=== PATIENT | male | born 1950 | race Caucasian/White ===

== ENCOUNTER → 2017-06-06 | Outpatient (CLI) | payer OTHER ==
--- NOTE | 2017-06-06 11:20 | DIAGNOSTIC IMAGING REPORT ---
AP STANDING VIEW OF BOTH KNEES; 3 VIEWS LEFT KNEE CLINICAL HISTORY: Chronic left knee pain. FINDINGS: An AP standing view of both knees with lateral, tunnel, and sunrise views of the left knee are compared to study dated 03/05/2014. The skeletal structures are osteopenic. No fracture is seen. There is moderate tricompartmental degenerative joint space narrowing, greatest in the medial and patellofemoral compartments. There are small marginal osteophytes and patellar enthesophytes. There is no evidence of osteochondral defect on the tunnel view. Degenerative beaking is noted in the tibial spine. A calcified fabella is incidentally noted. A small joint effusion is observed. Mild overlying soft tissue edema is suggested. Survey images of the right knee show no acute abnormality. Moderate narrowing is seen in the medial compartment the right knee. IMPRESSION: 1. Soft tissue swelling and joint effusion are suggested in the left knee. No acute bony abdomen mild is identified. 2. Osteopenia and degenerative change as above. Electronically signed by: Jameel Partida M.D. 06/06/2017 11:19 AM Dictated Date/Time: 06/06/2017 11:16 AM
== END | disposition home or self-care (01) ==
LOC: C.RDSM 11:05
PROVIDERS: ATTEND Internal Medicine
DX: M25.562 Pain in left knee (principal); M25.462 Effusion, left knee

== ENCOUNTER 2024-08-27 08:50 | Observation (INO) ==
--- NOTE | 2024-07-31 12:10 | PAT Medication Instructions ---
Medication Instructions Date of Service July 31, 2024 Home Medications Medication Instructions Recorded azelastine 137 mcg (0.1 %) nasal 1 spray intranasal BID PRN 02/26/24 spray rhinitis #30 mL ipratropium bromide 42 mcg (0.06 2 spray intranasal TID #15 mL 03/21/24 %) nasal spray apixaban 5 mg tablet (Eliquis) 5 mg PO Q12H #180 tabs 03/29/24 celecoxib 100 mg capsule (Celebrex) 200 mg (2 x 100 mg) PO BID PRN 04/15/24 pain #90 caps L-Arginate 1 cap PO QAM multivitamin 1 tab PO QAM vitamin B complex 1 tab PO QAM wheat germ oil 45 mg PO QAM ascorbic acid (vitamin C) 1,000 mg tablet 1 g PO QAM medical marijuana 1 dose PO UD azelastine 137 mcg (0.1 %) nasal spray 1 spray intranasal BID PRN ipratropium bromide 42 mcg (0.06 %) nasal spray 2 spray intranasal TID apixaban 5 mg tablet (Eliquis) 5 mg PO Q12H celecoxib 100 mg capsule (Celebrex) 200 mg (2 x 100 mg) PO BID PRN betamethasone dipropionate 0.05 % topical cream 1 applic topical BID PRN cholecalciferol (vitamin D3) 50 mcg (2,000 unit) capsule 50 mcg PO QAM clindamycin phosphate 1 % topical gel 1 applic topical DAILY PRN famotidine 40 mg tablet 40 mg PO QAM hydrocodone-homatropine 5 mg-1.5 mg/5 mL oral syrup 5 ml PO Q6H PRN losartan 50 mg tablet 50 mg PO QAM magnesium oxide 200 mg PO QAM mupirocin 2 % topical ointment 1 applic topical BID PRN ASK your surgeon for instructions L-Arginate 1 cap PO QAM celecoxib 100 mg capsule (Celebrex) 200 mg (2 x 100 mg) PO BID PRN ASK your prescriber and surgeon apixaban 5 mg tablet (Eliquis) 5 mg PO Q12H(in order for spinal or epidural anesthesia, Eliquis needs to be stopped 72 hours/3 days before surgery. Please check if okay with doctor that prescribes this to you) STOP taking 24 hours before surgery medical marijuana 1 dose PO UD betamethasone dipropionate 0.05 % topical cream 1 applic topical BID PRN clindamycin phosphate 1 % topical gel 1 applic topical DAILY PRN mupirocin 2 % topical ointment 1 applic topical BID PRN DO NOT take the morning of surgery multivitamin 1 tab PO QAM vitamin B complex 1 tab PO QAM wheat germ oil 45 mg PO QAM ascorbic acid (vitamin C) 1,000 mg tablet 1 g PO QAM cholecalciferol (vitamin D3) 50 mcg (2,000 unit) capsule 50 mcg PO QAM hydrocodone-homatropine 5 mg-1.5 mg/5 mL oral syrup 5 ml PO Q6H PRN losartan 50 mg tablet 50 mg PO QAM magnesium oxide 200 mg PO QAM Take morning of surgery With a small sip of water, OTHERWISE NOTHING TO EAT OR DRINK AFTER MIDNIGHT: azelastine 137 mcg (0.1 %) nasal spray 1 spray intranasal BID PRN(if needed) ipratropium bromide 42 mcg (0.06 %) nasal spray 2 spray intranasal TID famotidine 40 mg tablet 40 mg PO QAM Take evening before surgery azelastine 137 mcg (0.1 %) nasal spray 1 spray intranasal BID PRN(if needed) ipratropium bromide 42 mcg (0.06 %) nasal spray 2 spray intranasal TID hydrocodone-homatropine 5 mg-1.5 mg/5 mL oral syrup 5 ml PO Q6H PRN(if needed) Other Notes If you have any questions please call us at [phone] or [phone] or [phone] or [phone]
--- NOTE | 2024-08-06 10:57 | Anesthesiology Consultation ---
Date of Service August 06, 2024 Assessment & Plan (1) Encounter for pre-operative examination: Chart Review Chart Review: Acceptable Risk for Surgery (pending cardio clearance 08/16/24) and Patient seen in Pre Admission Testing - Discussed cardiac history (including moderate AV sclerosis in 2019) and preop EKG with Dr. Cortes- recommends cardiac clearance with ideally an updated ECHO (to rule out AV stenosis) - scheduled to see [facility] 08/16/24 at 915am. Patient aware. - Patient is not an ideal OPJ candidate (currently 23 hour observation) Per PAT appt on 08/06/24, no recent illness/disease exposures, illness related symptoms, or recent illness/disease positive tests. Will leave to surgeon's discretion if preop Covid testing needed Patient seen by cardio 05/21/24= patient seen for follow up. Had done well since last visit. "The patient is stable from a cardiovascular standpoint. He dem onstrates excellent control of his blood pressure at home. His cholesterol values are well-controlled. He was commended on his active lifestyle and exercise program. He is tolerating long-term anticoagulation for his paroxysmal atrial flutter without difficulty. Highly complex medical issues were managed and discussed today." Continue current meds. Follow up in six months Teaching & Discussion Pre-Anesthesia Teaching/Discussion Notes: Instructed NPO after midnight before surgery,except medications with 15 cc of water. Medication instructions provided according to the PAT guidelines. History Surgery Operation Date: 08/27/24 10:40 Proposed Procedures p Right Total Knee Arthroplasty - Az Seaman MD Height/Weight Height: 6 ft 1 in Weight: 93.6 kg Allergies Allergy/AdvReac Type Severity Reaction Status Date / Time No Known Drug Allergies Allergy NKDA Verified 07/29/24 10:49 Medications Home Medications Medication Instructions Recorded Confirmed Last Taken L-Arginate 1 cap PO QAM 03/11/21 07/29/24 03/28/23 multivitamin 1 tab PO QAM 03/11/21 07/29/24 03/28/23 vitamin B complex 1 tab PO QAM 03/11/21 07/29/24 03/28/23 wheat germ oil 45 mg PO QAM 04/25/22 07/29/24 03/28/23 ascorbic acid (vitamin C) 1,000 mg 1 g PO QAM 11/07/22 07/29/2423 tablet medical marijuana 1 dose PO UD 06/15/23 07/29/24 Unknown azelastine 137 mcg (0.1 %) nasal 1 spray intranasal BID PRN 02/26/24 07/29/24 Unknown spray rhinitis #30 mL ipratropium bromide 42 mcg (0.06 2 spray intranasal TID #15 mL 03/21/24 07/29/24 Unknown %) nasal spray apixaban 5 mg tablet (Eliquis) 5 mg PO Q12H #180 tabs 03/29/24 07/29/24 Unknown celecoxib 100 mg capsule (Celebrex) 200 mg (2 x 100 mg) PO BID PRN 04/15/24 07/29/24 Unknown pain #90 caps betamethasone dipropionate 0.05 % 1 applic topical BID PRN Insect 07/29/24 07/29/24 Unknown topical cream Bite cholecalciferol (vitamin D3) 50 50 mcg PO QAM 07/29/24 07/29/24 Unknown mcg (2,000 unit) capsule clindamycin phosphate 1 % topical 1 applic topical DAILY PRN Skin 07/29/24 07/29/24 Unknown gel Irritation famotidine 40 mg tablet 40 mg PO QAM 07/29/24 07/29/24 Unknown losartan 50 mg tablet 50 mg PO QAM 07/29/24 07/29/24 Unknown magnesium oxide 200 mg PO QAM 07/29/24 07/29/24 Unknown mupirocin 2 % topical ointment 1 applic topical BID PRN Skin 07/29/24 07/29/24 Unknown Irritation diclofenac sodium 1 % topical gel 2 g topical QID #100 grams 08/09/24 Unknown (Aleve (diclofenac)) hydrocodone-homatropine 5 mg-1.5 5 ml PO Q6H PRN Cough #473 mL 08/09/24 Unknown mg/5 mL oral syrup Past Medical History Medical History (Updated 08/06/24 @ 11:14 by Maria Luz Michelle PA-C) Abnormal gait "due to stiffness in knees" Aortic valvular disorder Moderate AV sclerosis without significant AV stenosis per 2019 ECHO Arthritis includes shoulder and knees Atrial flutter currently on eliquis; f/[place] Back stiffness Chronic venous insufficiency resolved with VenaSeal bilaterally Cough occasionally w/gerd Degenerative arthritis of lumbar spine Degenerative spondylolisthesis Environmental allergies Eustachian tube dysfunction occasionally GERD (gastroesophageal reflux disease) well controlled and stable with medication Gilbert's syndrome Hiatal hernia History of COVID-19 summer 2023, resolved Hypertension IBS (irritable bowel syndrome) Post-nasal drip due to environmental allergies Sinusitis chronic Tricuspid insufficiency Mild TR per 2019 ECHO Exercise / Class Metabolic Activity II 4-5 Yardwork/Stairs/Walk up hill (one flight of stairs - no chest pain or SOB ) Past Family History Family History Sister No problems noted. Mother Hearing loss Bipolar disorder Hypertension Stroke Brother Lung cancer Other No family history of adverse response to anesthesia No family history of bleeding disorder Denies family history of Ovarian cancer Prostate cancer Myocardial infarction Breast cancer Colorectal cancer Past Surgical History Surgical History H/O detached retina repair left History of left cataract extraction History of rhinoplasty 1979 History of right cataract surgery History of tooth extraction Hx of left inguinal hernia repair Hx of removal of cyst [place] teeth removed Past Anesthesia History No Hx of Anesthesia Complications and No Family Hx of Anesthesia Complications History of PONV No Hx of PONV and No Hx of Motion Sickness Social History Smoking Status: Never smoker tobacco type: cigarettes Smoking cigarettes per day: only smoked when he was in college Do You Dip or Chew Tobacco: No Hx Alcohol Use: Yes Alcohol type: beer, wine and hard liquor alcohol intake frequency: a few times a week Hx Substance Use: Yes (medical card) substance use type: marijuana Last Used Substance Other:: usually every evening Review of Systems - Hx of snoring- hx of sleep study in - no ANGELO Patient denies chest pain, shortness of breath, dyspnea on exertion, cough, wheezing, palpitations. No hx of seizures, stroke, SD. No hx of blood clots or blood transfusions Physical Exam Vital Signs VITALS BP 146/80 P 54 TEMP 97.6 SP02 96% RESP 16 Constitutional no acute distress ENMT Mouth: no TMJ clicking Thyromental Distance: > or= 3.5 Finger Breadths (3.5) Mallampati Class: II Front bottom teeth permanent implants Caps and crowns to side teeth and molars Neck neck extension not limited Respiratory normal respiratory effort; no respiratory distress Auscultation: lungs clear to auscultation bilaterally; no wheezes Cardiovascular Rate/Rhythm: regular rate and regular rhythm Heart Sounds: no murmur Vessels: no carotid bruit Irregularly irregular rhythm (rate controlled) Distant heart sounds. No obvious murmur Musculoskeletal Spine: no pain with cervical ROM Extremities: extremities normal to inspection Psychiatric Orientation: alert Lab Results Anesthesia Preop Results Results Anesthesia Widget: WBC 4.16 K/ul (4.8-10.8) L 08/06/24 Hgb 14.7 g/dl (14.0-18.0) 08/06/24 Hct 41.6 % (42.0-52.0) L 08/06/24 Plt 242 K/uL (130-400) 08/06/24 Na 136 mmol/L (136-145) 08/06/24 K 4.3 mmol/L (3.5-5.1) 08/06/24 Cl 103 mmol/L (98-107) 08/06/24 CO2 27 mmol/L (21-32) 08/06/24 BUN 16 mg/dl (6-23) 08/06/24 Creat 0.75 mg/dl (0.6-1.4) 08/06/24 Glucose Level 105 mg/dl (70-99(Fasting)) H 08/06/24 PT 12.2 Seconds (9.0-12.0) H 08/06/24 PTT 29 Seconds (21-31) 08/06/24 INR 1.1 (0.9-1.1) 08/06/24 Blood Type A Positive 08/06/24 Antibody Screen NEGATIVE 08/06/24 Testing Laboratory Results 08/06/24= TOTAL BILI: 1.8 (chronic and stable- hx of [place] syndrome) DIRECT BILI: 0.3 AST: 33 ALT: 28 ALK PHOS: 65 Electrocardiogram Date: 08/06/24 Atrial fibrillation with slow ventricular response at 44bpm Anteroseptal infarct When compared to EKG from March 17, 2023- atrial fibrillation has replaced a flutt er, questionable change in initial forces of septal leads per cardio Chest X-Ray Date: 08/06/24 FINDINGS: Lung volumes are normal. Lungs are clear. There is no pneumothorax or pleural effusion. Moderate cardiomegaly is unchanged. Mediastinal contours are normal. There is no evidence for pulmonary edema. Severe osteoarthritis of the bilateral glenohumeral joints incidentally noted. IMPRESSION: No acute cardiopulmonary findings. Stable cardiomegaly. Echocardiogram Date: 07/30/19 EF: 55-60% LV Function: normal RWMA: + none Other Findings: no LVH AV sclerosis moderate, without significant AV stenosis Mild TR
--- NOTE | 2024-08-19 18:36 | History & Physical Report ---
Date of Service August 19, 2024 Assessment & Plan (1) Bilateral primary osteoarthritis of knee: 73-year-old male with multiple medical comorbidities including atrial flutter and send aortic valve sclerosis with advanced bilateral knee DJD right side more symptomatic than the left. He would like to proceed with right knee replacement. Plan: Corinaran taken to the operating room and do a right total knee replacement. The risks and benefits of this procedure were explained and he understands. He knows he has to hold the Eliquis 3 days preop. He is seeing the production lapping machine operator and he has been cleared for surgery pending an echo. He apparently has some aortic sclerosis and they are just checking to make sure it is not progressed. His lungs looks okay we will proceed. Will use Eliquis for DVT prophylaxis. Plan stay in the hospital overnight and discharged hopefully postop day 1. (2) Osteoarthritis of shoulders, bilateral: (3) Disc degeneration, lumbosacral: (4) Atrial flutter: (5) GERD (gastroesophageal reflux disease): (6) Hypertension: History of Present Illness Chief Complaint: . Persistent progressive bilateral knee pain and discomfort right side greater than the left. Primary Care Provider: Geovany Jimenez MD . Patient is a 73-year-old gentleman who now presents specifically for surgical treatment of his knees. He is got about a 6-year history of increasing bilateral knee pain discomfort right side cord bit worse than the left. He has been through conservative treatment which would become less successful. He really cannot take NSAIDs as he is on Eliquis for atrial flutter followed by Dr. Vicente. The pain has begun to a really limit his walking ability. He can walk about 30 minutes next about it. He is ready to look and do fixing his knees. Allergies Allergy/AdvReac Type Severity Reaction Status Date / Time No Known Drug Allergies Allergy NKDA Verified 08/16/24 09:33 Home Medications Medication Instructions Recorded Confirmed Type L-Arginate 1 cap PO QAM 03/11/21 08/16/24 History multivitamin 1 tab PO QAM 03/11/21 08/16/24 History vitamin B complex 1 tab PO QAM 03/11/21 08/16/24 History wheat germ oil 45 mg PO QAM 04/25/22 08/16/24 History ascorbic acid (vitamin C) 1,000 mg 1 g PO QAM 11/07/22 08/16/24 History tablet medical marijuana 1 dose PO UD 06/15/23 08/16/24 History azelastine 137 mcg (0.1 %) nasal 1 spray intranasal BID PRN 02/26/24 08/16/24 Rx spray rhinitis #30 mL ipratropium bromide 42 mcg (0.06 2 spray intranasal TID #15 mL 03/21/24 08/16/24 Rx %) nasal spray apixaban 5 mg tablet (Eliquis) 5 mg PO Q12H #180 tabs 03/29/24 08/16/24 Rx celecoxib 100 mg capsule (Celebrex) 200 mg (2 x 100 mg) PO BID PRN 04/15/24 08/16/24 Rx pain #90 caps betamethasone dipropionate 0.05 % 1 applic topical BID PRN Insect 07/29/24 08/16/24 History topical cream Bite cholecalciferol (vitamin D3) 50 50 mcg PO QAM 07/29/24 08/16/24 History mcg (2,000 unit) capsule clindamycin phosphate 1 % topical 1 applic topical DAILY PRN Skin 07/29/24 08/16/24 History gel Irritation famotidine 40 mg tablet 40 mg PO QAM 07/29/24 08/16/24 History losartan 50 mg tablet 50 mg PO QAM 07/29/24 08/16/24 History magnesium oxide 200 mg PO QAM 07/29/24 08/16/24 History mupirocin 2 % topical ointment 1 applic topical BID PRN Skin 07/29/24 08/16/24 History Irritation diclofenac sodium 1 % topical gel 2 g topical QID #100 grams 08/09/24 08/16/24 Rx (Aleve (diclofenac)) hydrocodone-homatropine 5 mg-1.5 5 ml PO Q6H PRN Cough #473 mL 08/09/24 08/16/24 Rx mg/5 mL oral syrup Past Med/Surg History Problem List (Updated 08/19/24 @ 18:34 by Az Seaman MD) Bilateral primary osteoarthritis of knee Osteoarthritis of shoulders, bilateral Disc degeneration, lumbosacral Lumbar and sacral spondylarthritis Meniscal injury Foot ulcer Bilateral rotator cuff dysfunction Dermatitis Abnormal gait Sacroiliac joint disease Decreased range of motion of hip Arthritis Trigger finger S/P left inguinal hernia repair (04/05/23) Left Robotic Inguinal Hernia Repair - Freddy Mendez, DO, FACS Hypomagnesemia Encounter for pre-operative examination Atrial flutter dx in [facility] ER 03/17/23, f/u Dr. 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 Medical History History of COVID-19 summer 2023, resolved Tricuspid insufficiency Mild TR per 2019 ECHO IBS (irritable bowel syndrome) Degenerative spondylolisthesis Degenerative arthritis of lumbar spine Chronic venous insufficiency resolved with VenaSeal bilaterally Back stiffness Arthritis includes shoulder and knees Atrial flutter currently on eliquis; f/u [place] vicente Aortic valvular disorder Moderate AV sclerosis without significant AV stenosis per 2019 ECHO Abnormal gait "due to stiffness in knees" Sinusitis chronic Post-nasal drip due to environmental allergies Gilbert's syndrome Eustachian tube dysfunction occasionally Cough occasionally w/gerd Hiatal hernia Hypertension GERD (gastroesophageal reflux disease) well controlled and stable with medication Environmental allergies Surgical History Hx of left inguinal hernia repair Hx of removal of cyst History of left cataract extraction History of right cataract surgery History of tooth extraction [place] teeth removed H/O detached retina repair left History of rhinoplasty 1978 Family History Sister No problems noted. Mother Hearing loss Bipolar disorder Hypertension Stroke Brother Lung cancer Other No family history of adverse response to anesthesia No family history of bleeding disorder Denies family history of Ovarian cancer Prostate cancer Myocardial infarction Breast cancer Colorectal cancer Social History Smoking Status: Never smoker Tobacco Type: Cigarettes Age Started Using Tobacco: 17; Age Quit Using Tobacco: 20; packs per day: 0.75; Cigarettes Per Day: only smoked when he was in college; Second Hand Exposure: No; Do You Dip or Chew Tobacco: No; Hx Alcohol Use: Yes Alcohol type: beer, wine and hard liquor Alcohol Intake Frequency Comment: 1-2 drinks occasionally Hx Substance Use: Yes (medical card) Prescribed Medications: Marijuana Last Used Substance Other:: usually every evening Preferred Language: Ecuadorean Communication Ability: Effective Visual Impairment: No Limitations Hearing Ability: Normal Fast Food Shift Supervisor Required: No Beliefs That Will Affect Care: None marital status: Current Living Situation: Spouse current occupational status: retired current occupation: used to work in sales and [employer] How many Children do You have: 2 Feels Safe at Home: Yes Childhood Exposure to Second-Hand Smoke: No Diet: regular during the past year weight has: decreased > 10 lbs Dental Care, Regularly: Yes Physical Activity Frequency: Daily Seatbelt Use: always Sunscreen Use: No Assistive Devices: Glasses Review of Systems All systems reviewed & are unremarkable except as noted in HPI & below. Physical Exam . Physical examination reveals a pleasant healthy-appearing middle-aged gentleman. Looks to be in pretty good health. Examination of the knees reveal patient ambulates independently. Examination of the right knee reveals slight valgus alignment to his knee. He is tender over the lateral joint line. Small knee effusion. Range of motion is 5 to about 10 5-1 10. Bit stiff with flexion. No pain with hip motion. Examination left knee reveals a fairly similar valgus alignment. A little te nder over the lateral side of the knee. Small knee effusion. Range of motion is 5-1 10. No pain with hip motion. Constitutional WD/WN, vitals as above Respiratory normal respiratory effort, lungs clear to auscultation Cardiovascular Rate/Rhythm: + irregularly irregular Gastrointestinal (Abdomen) normal bowel sounds, soft, nontender, no hepatosplenomegaly Results & Data Results & Data Laboratory Results . Diagnostic Findings . X-rays of both knees were reviewed. That shows fairly advanced lateral compartment DJD of the right knee is probably a little bit worse than the left but both are fairly advanced. Got valgus alignment to both knees. PG Care Time/CCT Total # of Minutes Spent Total Time Spent with Patient: Total time spent is greater than 50% in coordination of care (as documented) at patient's floor/unit and/or counseling patient: Coding Level of Care Code None Diagnoses Bilateral primary osteoarthritis of knee M17.0 Osteoarthritis of shoulders, bilateral M19.011; M19.012 Disc degeneration, lumbosacral M51.37 Atrial flutter I48.92 GERD (gastroesophageal reflux disease) K21.9 Hypertension I10
[~2024-08-27 08:50] MED LIST: BUPIVACAINE 0.5 % 5 MG/1 ML PF 10ML VIAL ONE; ROPIVACAINE 0.5% 5 MG/ML 30 ML VIAL ONE
[2024-08-27] MEDS ORDERED: MIDAZOLAM HCL 1 MG/ML 2ML VIAL ONE (09:31)
[2024-08-27] MEDS ORDERED: fentaNYL citrate PF 100 MCG/2 ML VIAL ONE (09:31)
[2024-08-27] MEDS: LR 60ML/HR IV SCH (09:44)
[2024-08-27] MEDS: ACETAMINOPHEN 500 MG TAB PO SCH ×2 (09:47→14:44)
[2024-08-27] MEDS: CeleBREX 200 MG CAP PO SCH (09:48)
[2024-08-27] MEDS: FAMOTIDINE 20 MG TAB PO SCH (09:48)
[2024-08-27] MEDS: METOCLOPRAMIDE HCL 10 MG TABLET PO SCH (09:48)
[2024-08-27] MEDS: LR 500ML BOLUS, THEN 15ML/HR IV SCH (09:50)
[2024-08-27] MEDS ORDERED: PROPOFOL IV EMULSION 10 MG/ML 20 ML VIAL IV ONE ×2 (09:52→10:46)
[2024-08-27] MEDS ORDERED: ONDANSETRON INJ 2 MG/ML 2 ML VIAL IV PRN ×2 (10:11→13:33)
[2024-08-27] MEDS ORDERED: fentaNYL citrate PF 100 MCG/2 ML VIAL IV PRN (10:11)
[2024-08-27] MEDS ORDERED: ATROPINE SULFATE 0.1 MG/ML 10ML SYR IV PRN (10:11)
[2024-08-27] MEDS ORDERED: ePHEDrine sulfate 50 MG/ML AMP IV PRN (10:11)
--- NOTE | 2024-08-27 10:39 | History & Physical Bridge Note ---
Date of Service August 27, 2024 History & Physical Bridge Note I have examined the patient, reviewed the History & Physical and in the interval since the performance of the History & Physical I have noted the following changes of clinical significance: no changes noted
[2024-08-27] MEDS: dexAMETHasone**PF** 10 MG/ML VIAL ONE (10:41)
[2024-08-27] MEDS: dexAMETHasone**PF** 10 MG/ML VIAL IV ONE (10:41)
[2024-08-27] MEDS: ceFAZolin 2000MG 2,000 MG/15 ML SYR IV SCH ×2 (10:58→18:11)
[2024-08-27] MEDS: ROPIV 0.5% 246mg, Ketorolac 30mg, EPINEPHrine 0.5mg in NSS INFIL SCH (11:27)
[2024-08-27] MEDS ORDERED: ePHEDrine sulfate 50 MG/5 ML SYR ONE (11:28)
[2024-08-27] MEDS: ORTHO JOINT ANESTHETIC ONE (11:29)
[2024-08-27] MEDS ORDERED: GLYCOPYRROLATE 0.2 MG/ML VIAL ONE (11:30)
[2024-08-27] MEDS: TRANEXAMIC ACID 1,000 MG **IV Intra-op IV SCH (11:48)
--- NOTE | 2024-08-27 12:39 | Operative Report ---
PG Post Operative Report Pre & Post Diagnosis Operation Date: 08/27/24 10:40 Pre-Op Diagnosis: Right Knee Degenerative Joint Disease Post-Op Diagnosis: Right Knee Degenerative Joint Disease I identified the patient and participated in the time-out.: Yes Procedure Operation Date: 08/27/24 10:40 Actual Procedures p Right Total Knee Arthroplasty(Right) - Az Seaman MD Surgeon Az Seaman MD Driver Utility Worker Bonny Holman PA-C Estimated Blood Loss 50 Findings Consistent with Post-Op Diagnosis Specimens Right knee sent for pathology. Anesthesia Type Spinal MAC Complications none Disposition Accompanied Patient To Recovery: No Indications Patient is 73-year-old gentleman has had a several year history of increasing bilateral knee pain discomfort is gradually gotten worse over time has been through extensive conservative treatment became less successful over time. The right knee was bothering more than the left. He elected proceed with right total knee arthroplasty. Description of Procedure Operative implants consist of: 1. Biomet Vanguard size 80 right posterior stabilized femoral component. 2. Biomet size 83 tibial tray. 3. 10 mm posterior stabilized polyethylene insert. 4. 34 x 8 and half all poly patella. The patient was taken the operating, identified, placed on the operating table in the supine position. All contractors were appropriately padded. IV ant ibiotics tried by anesthesia team. A spinal anesthetic and adductor canal block had provided in the holding area. Right side turn was then placed. The right lower extremity was then prepped and draped in usual sterile fashion. The right leg was elevated and exsanguinated with use of an Esmarch and a turn was placed at 300 mmHg. An anterior approach of the right knee was then performed to longitudinal incision centered over the patella. Sharp dissection was got through subcutaneous tissue down the extensor mechanism. A medial Arthrotomy incision is made. Some subperiosteal dissection was carried out medially. The fat pad was resected from the patella tendon. Lateral patellofemoral ligament was released. Patella subluxate laterally knee was flexed. The osteophyte taken of the distal femur. The ACL PCL were then released from the distal femur and the tibia subluxated anteriorly. The external tumoral Ambi was then placed on the anterior face of the tibia and adjusted 12 mm medially. Proximal tibial cut was made removed to 3 mm of bone from medial side. The tibia sized to a size 83. Attention drawn the femur. The distal femur down to the sharp drill. The intramedullary canal was suction. A right 5 degree valgus cutting guide was placed. Distal femoral cutting block was pinned in place. Distal femoral cut was made to take an additional 5 mm of bone off distal femur. The femur was then sized to a size 80. The 8 I did not bring the knee extension and release some of the IT band in order to equalize the extension gap. The AP cutting block was placed in 5 degrees of external rotation. The anterior cut, anterior chamfer, posterior, posterior chamfer cuts were made. The box cutting guide was placed and just slightly lateral and the box cut was made. The knee was flexed. The remnants of the medial and lateral menisci were excised. The osteophytes were taken off the posterior aspect the femur. A trial femoral component was placed. The drill and standpoint to use great defect in the proximal tibia for the tibial tray. Knee was then trialed the 10 mm insert fit most appropriately. Attention drawn the patella. The patella was cleaned of all soft tissues. Patella thickness measured 28 mm in thickness was cut down to 15. Was sized to a size 34 patella. The lug holes were drilled for the 34 patella. The lateral osteophytes removed. The patella button was placed. Knee was taken through range of motion patella tracked nicely with no thumbs test. Attention drawn to place the permanent components. All trial components were removed. Bone plug was placed in the distal femur limit blood loss. Del batch Palacos G cement was mixed. A Biomet Vanguard size 80 right posterior stabilized femoral component, a size 83 tibial tray, [address] stabilized polyethylene insert, and a 34 x 8-1/2 all poly patella then cemented in place. The knee was brought out into full extension till cement hardened. A final cement check was then performed. The pericapsular tissues were injected with a total of 100 cc of Ortho mix. The patient did receive 1 g tranexamic acid. The tourniquet was then let down for 5 tourniquet time 56 minutes. Hemostasis Nai electrocautery. The extensor mechanism then closed with a combination of 1 PDS suture and a 1 Vicryl suture in a [id number] fashion. The extensor mechanism checked found be intact with the subcutaneous tissues then closed with 2 Dexon suture in a buried interrupted fashion the skin was closed skin ashvin. Leg was then cleaned and dried and a sterile dressing with Xeroform, 4 fours, sterile cast padding, Glenn bandage were applied. The patient then transferred to the recovery room in stable condition. The patient tolerated the procedure well and there were no complications. Miguel Holman, my physician data entry assistant, was present for the entire procedure. His assistance was essential and required for appropriate patient positioning, prepping and draping, surgical exposure, performing the technical details of the operation, placement the implants, closure of the wound, and placement of the sterile bandage. I attest to the content of the Intraoperative Record and any orders documented therein. Any exceptions are noted below.
--- NOTE | 2024-08-27 13:13 | XRay Report ---
XR knee RT 1 or 2V routine CLINICAL HISTORY: Surgical Post Op COMPARISON: Right knee radiographs May 23, 2024. FINDINGS: Alignment of the total right knee arthroplasty is anatomic. There is no periprosthetic fra cture or unexpected radiopaque foreign body. There are skin ashvin. IMPRESSION: Expected findings following total right knee arthroplasty. ACT 112: Negative or not required by law. Electronically signed by: Kam Gerardo M.D. 08/27/2024 1:12 PM
[2024-08-27] MEDS ORDERED: MUPIROCIN 2% OINT 22 GM TUBE TOP PRN (13:33)
[2024-08-27] MEDS ORDERED: HYDROmorphone INJ 0.5 MG/0.5 ML SYR IV PRN (13:33)
[2024-08-27] MEDS ORDERED: bisacodyL 10 MG SUPP PR PRN (13:33)
[2024-08-27] MEDS ORDERED: METOCLOPRAMIDE HCL INJ 5 MG/ML 2 ML VIAL IV PRN (13:33)
[2024-08-27] MEDS ORDERED: NALOXONE HCL 0.4 MG/1 ML VIAL/CARP IV PRN (13:33)
[2024-08-27] MEDS ORDERED: ALUMINUM/MAGNESIUM SUSP 30 ML UDC PO PRN (13:33)
[2024-08-27] MEDS ORDERED: MAGNESIUM HYDROXIDE SUSP 30 ML UDC PO PRN (13:33)
[2024-08-27] MEDS ORDERED: oxyCODONE HCL IR 5 MG TAB (IMMEDIATE RELEASE) PO PRN (13:33)
[2024-08-27] MEDS ORDERED: NON-FORMULARY MEDICATION (Medical Marijuana 1 EA) PO SCH (13:33)
[2024-08-27] MEDS ORDERED: AZELASTINE HCL 0.1% NASAL 200 SPRAYS/27,400 MCG BTL NAE PRN (13:33)
--- NOTE | 2024-08-27 13:39 | Anesthesiology Progress Note ---
Date of Service August 27, 2024 Anesthesia Post Procedure Vital Signs Vital Signs: Temp Pulse Pulse Resp BP Pulse Ox O2 Del Method 08/27/24 13:15 97.7 F 51 L 17 118/70 94 Room Air 08/27/24 13:05 45 L 19 117/70 94 Room Air 08/27/24 12:55 45 L 16 134/64 98 Oxymask 08/27/24 12:48 98.1 F 43 L 17 104/65 98 Oxymask 08/27/24 09:31 97.5 F L 53 L 20 172/103 H 97 Room Air O2 Flow Rate 08/27/24 13:15 08/27/24 13:05 08/27/24 12:55 5 08/27/24 12:48 5 08/27/24 09:31 Transfer of Care Handoff Completed per policy Notes Mental Status: alert / awake / arousable and participated in evaluation Patient Amnestic to Procedure: Yes Nausea / Vomiting: adequately controlled Pain: adequately controlled Airway Patency, RR, SpO2: stable & adequate BP & HR: stable & adequate Hydration State: stable & adequate Neuraxial Anesthesia: was administered and sensory block is resolving Anesthetic Complications: no major complications apparent and Pt Satisfied with anesthetic care
[2024-08-27] MEDS ORDERED: TRIAMCINOLONE ACET 0.5% CR 15 GM TUBE TOP PRN (13:49)
[2024-08-27] MEDS: KETOROLAC TROMETHAMINE 15 MG/ML VIAL IV SCH (14:45)
[2024-08-27] MEDS: IPRATROPIUM BROMIDE NASAL SPRAY 0.06% 15ML NAE SCH (17:05)
[2024-08-27] MEDS: ASCORBIC ACID 500 MG TAB PO SCH (18:11)
[2024-08-27] MEDS: TRANEXAMIC ACID / 0.7% NACL 1,000 MG/100 ML BAG IV SCH (18:11)
[2024-08-27] MEDS: SENNA 8.6 MG TAB PO SCH (20:09)
[2024-08-27] MEDS: DOCUSATE SODIUM 100 MG CAP PO SCH (20:09)
[2024-08-27] MEDS ORDERED: SENNA 8.6 MG TAB PO SCH (21:00)
[2024-08-27 23:02] VITALS: RESP 18
[2024-08-28 06:29] LABS: Hematocrit (blood only) 32.6 % (42.0-52.0); Hemoglobin 11.5 g/dl (14.0-18.0); Mean Corpuscular Hemoglobin 31.9 pg (25.0-34.0); Mean Corpuscular Hgb Conc 35.3 g/dL (32.0-36.0); Mean Corpuscular Volume 90.6 fL (80.0-100.0); Mean Platelet Volume 10.1 fL (9.4-12.4); Platelet Count 215 K/uL (130-400); RDW Coefficient of Variation 12.1 % (11.5-14.5); RDW Standard Deviation 40.5 fL (36.4-46.3)
[2024-08-28 06:43] LABS: BUN Creatinine Ratio 20.5 (10-20); Calcium 8.4 mg/dl (8.6-10.3); Creatinine Clr Calc Pharmacy 92.5 ml/min; Potassium 4.5 mmol/L (3.5-5.1)
[2024-08-28] MEDS: dexAMETHasone 10 MG in SYRINGE 0 ML IV SCH (07:44)
[2024-08-28] MEDS: MULTIVITAMIN TAB PO SCH (07:45)
[2024-08-28] MEDS: MAGNESIUM OXIDE 400 MG TAB PO SCH (07:45)
[2024-08-28] MEDS: FAMOTIDINE 40 MG TABLET PO SCH (07:45)
[2024-08-28] MEDS: VITAMIN B COMPLEX TAB PO SCH (07:45)
[2024-08-28] MEDS: LOSARTAN POTASSIUM 50 MG TAB PO SCH (07:46)
[2024-08-28] MEDS: CHOLECALCIFEROL 25 MCG (1000 UNITS) TAB PO SCH (07:46)
[2024-08-28] MEDS: TAMSULOSIN HCL 0.4 MG CAP PO SCH (07:49)
--- NOTE | 2024-08-28 08:43 | Orthopedic Progress Note ---
Date of Service August 28, 2024 Assessment & Plan (1) Status post right knee replacement: Plan: 73-year-old gentleman postop day 1 from right knee replacement doing pretty well. Pains controlled. He is neurologically intact. Plan: 1. DVT prophylaxis. He will be using the thigh-high teds, SCDs, and back on the Eliquis. Will start him on a prophylactic dose today. Resume normal dose tomorrow. 2. PT/OT. Weight-bear as tolerated. Right total knee protocol. 3. Pain control doing okay with current pain regimen. 4. Disposition plan is to discharge to home with home health if he does okay in therapy today. Admission and Anticipated Discharge Date Admission Date: August 27, 2024 Subjective 73-year-old gentleman postop day 1 from a right knee replacement. He is doing pretty well. Had a pretty good night. Pains controlled. No chest pain or shortness of breath. Not feeling dizzy or lightheaded. Physical Exam Physical Exam: Physical exam shows a pleasant middle-age male. He is was sleeping this morning and I woke him up. Examination of the right leg reveals the dressing be clean dry and intact. Leg is well aligned. Can do a straight leg raise. Can dorsiflex and plantarflex his foot appropriately. He is neurologically intact. Respiratory: normal respiratory effort, lungs clear to auscultation Cardiovascular: RRR, no murmur, no edema Gastrointestinal (Abdomen): normal bowel sounds, soft, nontender, no hepatosplenomegaly Results & Data Vital Signs (Past 12 Hours) Vital Signs Temp Pulse Resp BP Pulse Ox O2 Del Method 08/28/24 04:10 36.4 C L 56 L 18 130/79 94 Room Air 08/27/24 23:01 36.5 C 53 L 18 146/85 H 96 Room Air Laboratory Results Hemoglobin is 11.5. Hematocrit is 32.6. Electrolytes are stable.
[2024-08-28 08:48] VITALS: BP 154/79; PULSE 55; TEMP 98.2; O2SAT 97
[2024-08-28] MEDS ORDERED: [UNRECOGNIZED DRUG - OTHER] PO SCH (09:00)
[2024-08-28] MEDS ORDERED: [UNRECOGNIZED DRUG - OTHER] PO SCH (09:00)
[2024-08-28] MEDS ORDERED: NON-FORMULARY MEDICATION (Ascorbic Acid (Vitamin C) 1,000 mg tablet) PO SCH (09:00)
[2024-08-28] MEDS ORDERED: NON-FORMULARY MEDICATION (Multivitamin Tablet) PO SCH (09:00)
[2024-08-28] MEDS ORDERED: APIXABAN 2.5 MG TAB PO SCH (13:00)
--- NOTE | 2024-08-30 19:07 | Discharge Summary ---
Date of Service August 30, 2024 Admission HPI (Per Admitting) . Patient is a 73-year-old gentleman who now presents specifically for surgical treatment of his knees. He is got about a 6-year history of increasing bilateral knee pain discomfort right side cord bit worse than the left. He has been through conservative treatment which would become less successful. He really cannot take NSAIDs as he is on Eliquis for atrial flutter followed by Dr. Vicente. The pain has begun to a really limit his walking ability. He can walk about 30 minutes next about it. He is ready to look and do fixing his knees. Admission Exam (Per Admitting) . Physical examination reveals a pleasant healthy-appearing middle-aged gentleman. Looks to be in pretty good health. Examination of the knees reveal patient ambulates independently. Examination of the right knee reveals slight valgus alignment to his knee. He is tender over the lateral joint line. Small knee effusion. Range of motion is 5 to about 10 5-1 10. Bit stiff with flexion. No pain with hip motion. Examination left knee reveals a fairly similar valgus alignment. A little tender over the lateral side of the knee. Small knee effusion. Range of motion is 5-1 10. No pain with hip motion. Principal Diagnosis Same as "Discharge Diagnosis" noted below under Discharge Instructions. Discharge Data Procedures Performed Operation Date: 08/27/24 10:40 Actual Procedures p Right Total Knee Arthroplasty(Right) - Az Seaman MD Ordered Studies 08/27/24 05:00 US - OR guided needle placemen Routine Hospital Course (1) Status post right knee replacement: This is a 73 year old patient admitted on 08/27/24 and underwent total knee arthroplasty. He tolerated the procedure well and there were no complications. Transferred to the PACU post op and later to the orthopedic floor for further care. He was given ancef for antibiotic prophylaxis. He was also given LALO stockings, SCDs, and eliquis for DVT prophylaxis. Hemoglobin, hematocrit, and vital signs were monitored during his hospital stay and remained stable. Did not require any blood transfusions. There were no complications during his hospital stay. By post op day #1 the patient was tolerating a regular diet, pain was reasonably controlled with oral pain medicine, and he was participating in physical therapy. On post op day #1 the patient was discharged home and set up with home health care. He was given printed discharge instructions including prescriptions for extra strength tylenol, zofran, cefadroxil, oxycodone, senokot, and flomax. Continue physical therapy, weight bearing as tolerated. Continue LALO stockings. Follow up approximately 2 weeks post op or sooner if there are problems or concerns. PG Care Time/CCT Total # of Minutes Spent Total Time Spent with Patient: Total time spent is greater than 50% in coordination of care (as documented) at patient's floor/unit and/or counseling patient: Discharge Plan Discharge Items Patient Disposition: Home - Home Health Services Reason For Visit: RIGHT KNEE REPLACEMENT Discharge Diagnosis: Right Knee Replacement Activity: Per Instructions section Weightbearing: Full weightbearing Non-emergency contact: Surgeon Call non-emergency contact if: you have any medication questions Follow-up/Referrals: Geovany Jimenez MD [Primary Care Provider] - Diet: Regular Addtl Attending Provider Instructions: ACTIVITY RECOMMENDATIONS: Diet: * You may resume previous diet. Physical Therapy: * You will go to physical therapy three times each week for four to six weeks after your surgery in order to regain your knee range of motion and to retrain your knee to work properly. * It is just as important to make sure you are getting your knee perfectly straight as it is to regain your knee bend. * Taking a pain pill an hour before therapy can help you have a more productive and comfortable therapy session. Home Exercise: * You were shown a series of exercises (heel props, heel slides, etc.) in the hospital. Do these exercises three to four times each day including the exercises you were shown in physical therapy. Walking: * Get up and walk several times each day. For the first four weeks, try not to stand or walk for more than one hour at a time. If you do stand or walk for more than one hour, you will not hurt anything, but your knee and leg will likely swell. * As you feel comfortable, you may change from the walker or crutches to a cane and then to independent walking. MEDICATIONS: New Medicine: * You will likely be taking one or more of these medications: 1. Oxycodone - A quick and shorter-acting pain medication. Take one to two tablets every six hours to lessen your pain. 2. Eliquis - Thins your blood to lessen the chance of forming a blood clot. * The most common side effects of pain medicine and iron are nausea and constipation. If nausea or constipation is too much of a problem or if you have any questions about your new medicines or doses, call [facility] at . We will try to help you manage these issues. "VERY IMPORTANT TO READ AND REVIEW" Pain: * The immediate post-operative period after knee replacement surgery is often quite painful. * You are given a prescription for pain medicine. You should take it, as directed, when you need it, especially before physical therapy and before going to bed. Pain that interferes with sleep is very common and can last several months. * You will likely need pain medicine for the first four to six weeks. It will not stop all of the pain. The pain will lessen and as you feel better, you may change to milder pain medicine such as Tylenol. * The most common side effects of pain medicine are nausea and constipation, so don't take more than you need. SPECIAL CARE INSTRUCTIONS: TEDs/Elastic Stockings: * The white elastic stockings help limit swelling and prevent blood clots from forming in your legs. The more you wear them, the more they work. * Wear them for six weeks after knee replacement surgery and four weeks after partial knee replacement. Incision Site Care: * Remove dressing postoperative day 2 and then shower. Keep direct shower pressure off the incision site. * After showering, cover ezequiel with dry gauze and change daily or more frequently if the dressing is getting saturated with drainage. * Use the LALO stockings to hold dressing in place. DO NOT apply tape on the skin. * May completely stop using bandage if wound is dry and no drainage * Ezequiel are removed between 2 and 3 weeks post-op. If your follow-up appointment is made before 2 weeks, please have your appointment re- scheduled. It is too early to remove the ezequiel. Prevention of Infection: * Take antibiotics one hour before any dental cleaning, dental work, urological procedure, gastrointestinal procedure or any invasive surgery in order to prevent your new joint from getting infected. * You may get the antibiotics from the doctor performing the procedure or you may call our office at [phone] before and we will call in a prescription to the pharmacy of your choice. Things to Watch For: * Drainage from the incision site that occurs more than one week after your surgery. * Severely increased knee/leg pain or swelling. * Increased redness at the incision site. * Fever above 102 degrees Fahrenheit. * Unusual chest pain or shortness of breath. * Unusual pain or burning with urination. Call [facility] at [phone] with any of the above problems or if you have any questions about your medicines or recovery. FOLLOW UP VISIT: Make an appointment to see your doctor for approximately two weeks after surgery for a progress check and staple removal by calling the office at [phone]. Pending Studies at Discharge: No Stand-Alone Forms: My [facility], Smoking Cessation Medications and DC Order Prescriptions: Continued azelastine 137 mcg (0.1 %) aerosol,spray 1 spray INTNAS BID PRN (Reason: rhinitis) Qty: 30 6RF Eliquis 5 mg tablet 5 mg PO Q12H Qty: 180 3RF Hold Instructions: Resume on 04/06/23. diclofenac sodium [Aleve (diclofenac)] 1 % gel 2 g topical QID Qty: 100 2RF Rx Instructions: apply to single elbow, wrist or hand; for hand includes palm/fingers/back of hand oxycodone 5 mg tablet 5 - 10 mg PO Q6 PRN (Reason: pain) Qty: 40 0RF Rx Instructions: Take as needed for pain ondansetron 4 mg tablet,disintegrating 4 mg PO Q8 PRN (Reason: nausea) Qty: 20 1RF Rx Instructions: Take as needed for nausea sennosides [Senokot] 8.6 mg tablet 8.6 mg PO BID 14 Days Qty: 28 0RF Rx Instructions: Take two times a day to prevent/treat constipation cefadroxil 500 mg capsule 500 mg PO BID 7 Days Qty: 14 0RF Rx Instructions: Take 1 cap twice a day to prevent infection tamsulosin [Flomax] 0.4 mg capsule 0.4 mg PO DAILY Qty: 7 0RF Rx Instructions: Begin night BEFORE surgery to prevent urinary retention ipratropium bromide 42 mcg (0.06 %) spray,non-aerosol 2 spray intranasal TID Qty: 15 5RF Rx Instructions: administer into each nostril wheat germ oil Oil 45 mg PO QAM medical marijuana 1 dose PO UD Rx Instructions: flower, vaping, gummies ascorbic acid (vitamin C) 1,000 mg tablet 1 g PO QAM celecoxib [Celebrex] 100 mg capsule 200 mg PO BID PRN (Reason: pain) Qty: 90 11RF Patient Comments: generally takes BID, every day multivitamin Tablet 1 tab PO QAM vitamin B complex Tablet 1 tab PO QAM L-Arginate 1 cap PO QAM magnesium oxide 200 mg magnesium Tablet 200 mg PO QAM losartan 50 mg tablet 50 mg PO QAM famotidine 40 mg tablet 40 mg PO QAM Rx Instructions: TAKE ONE TABLET BY MOUTH DAILY clindamycin phosphate 1 % gel 1 applic topical DAILY PRN (Reason: Skin Irritation) betamethasone dipropionate 0.05 % cream 1 applic topical BID PRN (Reason: Insect Bite) Rx Instructions: Affected area on stomach mupirocin 2 % ointment 1 applic topical BID PRN (Reason: Skin Irritation) cholecalciferol (vitamin D3) 50 mcg (2,000 unit) capsule 50 mcg PO QAM Discontinued hydrocodone-homatropine 5-1.5 mg/5 mL syrup 5 ml PO Q6H PRN (Reason: Cough) Qty: 473 0RF No Action acetaminophen [Tylenol Extra Strength] 500 mg tablet 1,000 mg PO Q8H 30 Days Qty: 180 0RF Rx Instructions: Take 3 times per day to lessen pain. Cecil/Other Patient Handouts: Total Knee Replacement Admission Data Admit Date/Time: 08/27/24 12:35 Attending Provider: Az Seaman Admit Provider: Az Seaman Primary Care Provider: Geovany Jimenez Other Providers: [facility],Home Health Other Interventions: Discharge Summary Assessment (RN) Last Done: 08/28/24 09:22
== END 2024-08-28 11:10 | disposition home health service (06) ==
LOC: 3E 08:50 → ASU 08:50